=== PATIENT | male | born 1970 | race Caucasian/White ===

== ENCOUNTER → 2021-01-27 | Outpatient (REF) | payer BC | LOC: M LAB REF 16:20 | PROVIDERS: ATTEND Internal Medicine | DX: N52.9 Male erectile dysfunction, unspecified (principal) ==

== ENCOUNTER → 2024-09-09 | Outpatient (REF) | payer OTHER | LOC: M LAB REF 08:31 | PROVIDERS: ATTEND Surgery | DX: L72.3 Sebaceous cyst (principal) ==

== ENCOUNTER → 2024-10-06 | Outpatient (CLI) | payer OTHER ==
[2024-10-06 17:04] LABS: URIC ACID 8.6 MG/DL (3.7-9.2)
[2024-10-06 17:07] LABS: C REACTIVE PROTEIN QUANTITATIV < 0.50 MG/DL (<1.0)
== END ==
LOC: M WUC 11:40
PROVIDERS: ATTEND Internal Medicine
DX: M10.9 Gout, unspecified (principal)